=== PATIENT | female | born 1995 | race African-American/Black ===

== ENCOUNTER 2018-07-16 15:15 | Observation (INO) | payer MEDICAID ==
[~2018-07-16] VITALS: Ht 152.4 cm; Wt 51.3 kg
[2018-07-16] MEDS ORDERED: FERR-252 PO (15:43)
[2018-07-16] MEDS ORDERED: CALC600T16 PO (15:43)
[2018-07-16] MEDS ORDERED: PREN-380 PO (15:43)
[2018-07-16 16:02] VITALS: BP 110/67
== END 2018-07-16 17:15 | disposition home or self-care (01) ==
LOC: MLD 15:15
PROVIDERS: ADMIT Obstetrics & Gynecology; ATTEND Obstetrics & Gynecology
DX: O26.893 Other specified pregnancy related conditions, third trimester (principal); R10.30 Lower abdominal pain, unspecified; Z3A.33 33 weeks gestation of pregnancy
CPT/HCPCS: 81000; G0378

== ENCOUNTER 2018-08-03 18:40 | Inpatient (IN) | payer MEDICAID ==
[~2018-08-03] VITALS: Ht 152.4 cm; Wt 54.9 kg
[~2018-08-03 18:40] MED LIST: CALC600T16 PO; FERR-252 PO; PREN-380 PO
[2018-08-03] MEDS ORDERED: TERBUTALINE 1 MG/ML VIAL SUBQ SCH (20:10)
[2018-08-03] MEDS: LACTATED RINGERS 1,000 ML IV SCH (20:10)
[2018-08-03] MEDS ORDERED: AMPICILLIN 2,000 MG in NACL 0.9% 100 ML IV SCH (20:15)
[2018-08-03] MEDS ORDERED: AMPICILLIN 2,000 MG VIAL ONE (20:25)
[2018-08-03] MEDS ORDERED: TERBUTALINE 1 MG/ML VIAL SUBQ ONE (20:25)
[2018-08-03 20:45] LABS: BASOPHILS % (AUTO) 0.2 % (0.0-2.0); HEMATOCRIT 30.7 % (36-48); HEMOGLOBIN 10.2 g/dL (12.0-16.0); LYMPHOCYTES # (AUTO) 1.5 K/uL (2.5-16.5); LYMPHOCYTES % (AUTO) 18.1 % (20.5-51.1); MEAN CORPUSCULAR HEMOGLOBIN 29 pg (27-31); MEAN CORPUSCULAR HGB CONC 33 g/dL (33-37); MEAN CORPUSCULAR VOLUME 87.5 fL (80-94); MONOCYTES # (AUTO) 0.5 K/uL (0.8-1.0); MONOCYTES % (AUTO) 6.4 % (1.7-9.3); NEUTROPHILS % (AUTO) 75.3 % (42.2-75.2); PLATELET COUNT (AUTO) 208 K/uL (140-450); RED BLOOD CELL COUNT(AUTO) 3.51 MIL/uL (4.20-5.40)
[2018-08-03 21:05] LABS: APPEARANCE,URINE CLEAR (CLEAR); BLOOD, URINE 3+ (NEGATIVE); COLOR,URINE YELLOW (YELLOW); PH,URINE 6.5 (5.0-9.0); UGLUCOSE NEGATIVE (NEGATIVE)
[2018-08-03 21:06] LABS: BILIRUBIN,URINE 1+ (NEGATIVE); LEUKOCYTE ESTERASE ,URINE NEGATIVE (NEGATIVE); NITRITE, URINE NEGATIVE (NEGATIVE)
[2018-08-03 21:11] LABS: RBC,URINE 80-100 /HPF (0-5); WBC,URINE 0-5 (RARE) /HPF (0-5)
[2018-08-03] MEDS ORDERED: NIFEdipine 10 MG CAPLF ONE (21:48)
[2018-08-03] MEDS: NIFEdipine 10 MG CAPLF PO SCH ×2 (21:56→22:26)
[2018-08-03] MEDS ORDERED: BETAMETH ACET/BETAMETH NA PH 30 MG/5 ML VIAL IM ONE (22:17)
[2018-08-03 22:39] LABS: D-DIMER > 5000 ng/ml (0-400)
[2018-08-03 22:57] VITALS: BP 101/55
[2018-08-03 23:20] LABS: FIBRINOGEN 381 mg/dL (200-400)
[2018-08-03 23:53] LABS: BARBITURATE, URINE NEGATIVE ng/ml (NEG <=200); BENZODIAZEPINE, URINE NEGATIVE ng/mL (NEG <=200); CANNABINOID, URINE POSITIVE ng/mL (NEG <=50); COCAINE, URINE NEGATIVE ng/mL (NEG <=300); OPIATE, URINE NEGATIVE ng/mL (NEG <=2000); PHENCYCLIDINE SCREEN,URINE NEGATIVE ng/mL (NEG <=25)
[2018-08-04] MEDS ORDERED: AMPICILLIN 2,000 MG in NACL 0.9% 100 ML IV SCH ×2
[2018-08-04] MEDS: LACTATED RINGERS 1,000 ML IV SCH ×2 (00:53→07:17)
[2018-08-04] MEDS ORDERED: AMPICILLIN 2,000 MG VIAL ONE ×4 (01:03→12:54)
--- NOTE | 2018-08-04 08:24 | NUR ---
PATIENT HAS BEEN SCREENED AND CATEGORIZED LOW NUTRITION RISK. PATIENT WILL BE SEEN WITHIN 7 DAYS OF ADMISSION. 08/10/[address]
[2018-08-04] MEDS ORDERED: BETAMETH ACET/BETAMETH NA PH 30 MG/5 ML VIAL IM ONE ×2 (09:00→10:22)
== END 2018-08-04 14:21 | disposition home or self-care (01) | DRG 565 ==
LOC: MLD 18:40
PROVIDERS: ADMIT Obstetrics & Gynecology; ATTEND Obstetrics & Gynecology
DX: O47.03 False labor before 37 completed weeks of gestation, third trimester (principal); Z3A.36 36 weeks gestation of pregnancy
CPT/HCPCS: 36415; 59025; 76805; 80305; 81001; 85025; 85379; 85384; 85610; 85730; 87653-90; J0290; J0702; J3105; J7120; Q0092

== ENCOUNTER 2018-10-21 12:32 | Emergency (ER) | payer MEDICAID, OTHER ==
[~2018-10-21] VITALS: Ht 160 cm; Wt 47.6 kg
--- NOTE | 2018-10-21 12:43 | NUR ---
PATIENT AMBUTATED TO ER BED 4
[2018-10-21 12:46] VITALS: BP 114/74
--- NOTE | 2018-10-21 12:53 | NUR ---
PT BIB SELF TO THE ED WITH THE CHIEF C/O DRY COUGH FOR A WEEK. DENIES ANY FEVER OR CHEST PAIN. DENIES SOB OR DIFFICULTY BREATHING. HX OF ASTHMA. TAKING ALBUTEROL. LUNGS CLEAR. DENIES ANY OTHER PROBLEM AT THIS TIME. STATES HAVING PAIN ON S/O CS SITE DURING COUGH. PAIN 9/10 AT THIS TIME. ER MD AWARE.
--- NOTE | 2018-10-21 12:58 | NUR ---
PT BEING SEEN BY BAUTISTA LOZOYA.
--- NOTE | 2018-10-21 13:05 | NUR ---
PT TRANSPORT TO RADIOLOGY
--- NOTE | 2018-10-21 13:12 | NUR ---
PT RETURNED FROM RADIOLOGY
[2018-10-21 14:33] VITALS: BP 128/80
--- NOTE | 2018-10-21 14:33 | NUR ---
Patient discharged with v/s stable. Written and verbal after care instructions given and explained. Patient alert, oriented and verbalized understanding of instructions. Ambulatory with steady gait. All questions addressed prior to discharge. ID band removed. Patient advised to follow up with PMD. Rx of CODEINE PHOSPHATE/PROMATHAZINE HYDROCHLORIDE AND TESSALON given. Patient educated on indication of medication including possible reaction and side effects. Opportunity to ask questions provided and answered.
== END 2018-10-21 14:33 | disposition home or self-care (01) ==
LOC: MED 12:32
DX: J06.9 Acute upper respiratory infection, unspecified (principal); G47.00 Insomnia, unspecified; J45.909 Unspecified asthma, uncomplicated
CPT/HCPCS: 71046; 99283

== ENCOUNTER 2018-11-28 17:21 | Emergency (ER) | payer OTHER ==
[~2018-11-28] VITALS: Ht 152.4 cm; Wt 45.4 kg
[2018-11-28 17:35] VITALS: BP 139/86
--- NOTE | 2018-11-28 18:51 | NUR ---
PT AMBULATED TO BED 01.
--- NOTE | 2018-11-28 18:51 | NUR ---
BIB SELF. AAO X4 C/O DRY COUGH THAT IS CAUSING PAIN AT HER INCISION. PT STATES 8/10 PAIN TO THE SITE. PT IS 3 MONTHS AND STATES SHE IS STILL HEALING. CLEAR LALO LUNGS UPON AUSCULTATION. DENIES SOB, N/V/D. HOB UP. BED SIDE RAILS UP X1. ON LOW BED POSITION, LOCKED. ER MADE AWARE OF PT STATUS.
[2018-11-28 19:20] VITALS: BP 128/84
--- NOTE | 2018-11-28 19:20 | NUR ---
Patient discharged with v/s stable. Written and verbal after care instructions given and explained. Patient alert, oriented and verbalized understanding of instructions. Ambulatory with steady gait. All questions addressed prior to discharge. ID band removed. Patient advised to follow up with PMD. Rx of GUAIATUSSIN given. Patient educated on indication of medication including possible reaction and side effects. Opportunity to ask questions provided and answered.
== END 2018-11-28 19:20 | disposition home or self-care (01) ==
LOC: MED 17:21
DX: J20.9 Acute bronchitis, unspecified (principal); J45.909 Unspecified asthma, uncomplicated
CPT/HCPCS: 99283

== ENCOUNTER 2018-12-31 17:33 | Emergency (ER) | payer OTHER ==
[~2018-12-31] VITALS: Ht 152.4 cm; Wt 45.4 kg
[2018-12-31 17:45] VITALS: BP 119/62
--- NOTE | 2018-12-31 17:52 | NUR ---
Patient ambulated to bed 6. RN evaluating patient at bedside.
--- NOTE | 2018-12-31 18:05 | NUR ---
COUGH X 1 WEEK, SORE THROAT, TRIED robitussin DOES NOT WORK. DENIES NAUSEAR AND DIARRHEA; STATES VOMITED ONE YESTERDAY. LUNG SOUNDS ARE CLEAR; HR EVEN AND REGULAR; PT DENIES ANY FEVER, CP, SOB, OR COUGH AT THIS TIME; PATIENT STATES PAIN OF 9/10 AT THIS TIME; VSS; PATIENT POSITIONED FOR COMFORT; HOB ELEVATED; BED DOWN. ER MD MADE AWARE OF PT STATUS.
--- NOTE | 2018-12-31 18:08 | NUR ---
Dr. Muro evaluating patient at bedside.
[2018-12-31 18:27] VITALS: BP 119/62
--- NOTE | 2018-12-31 18:29 | NUR ---
Patient discharged with v/s stable. Written and verbal after care instructions given and explained. Patient alert, oriented and verbalized understanding of instructions. Ambulatory with steady gait. All questions addressed prior to discharge. ID band removed. Patient advised to follow up with PMD. Rx of Promethazine given. Patient educated on indication of medication including possible reaction and side effects. Opportunity to ask questions provided and answered.
== END 2018-12-31 18:29 | disposition home or self-care (01) ==
LOC: MED 17:33
DX: R05 Cough (principal); J45.909 Unspecified asthma, uncomplicated
CPT/HCPCS: 99283

== ENCOUNTER 2019-01-09 14:04 | Emergency (ER) | payer OTHER ==
[~2019-01-09] VITALS: Ht 152.4 cm; Wt 45.4 kg
[2019-01-09 14:14] VITALS: BP 119/71
--- NOTE | 2019-01-09 14:22 | NUR ---
Patient ambulated to bed 2. RN evaluating patient at bedside. Addendum: 01/09/19 at 1426 by MMTHEM Patient ambulated to bed 8. RN evaluating patient at bedside.
--- NOTE | 2019-01-09 14:30 | NUR ---
Note undone in EDM - 01/09/19 at 1701 by MED PT C/O ABNORMAL VAGINAL BLEEDING, LOWER ABD PAIN, AND CONSTIPATION FOR 3 DAYS. PT ALSO HAD MILD NAUSEA AND LIGHTHEADACHE BUT NOT AT THIS TIME. STATED 4 WKS. DENIES VOMITING; SKIN IS PINK/WARM/DRY; AAOX4 WITH EVEN AND STEADY GAIT; PT DENIES ANY FEVER, CP, SOB, OR COUGH AT THIS TIME; PATIENT STATES PAIN OF 10/10 AT THIS TIME; VSS; PATIENT POSITIONED FOR COMFORT; HOB ELEVATED; BEDRAILS UP X1; BED DOWN. ER MADE AWARE OF PT STATUS.
--- NOTE | 2019-01-09 14:30 | NUR ---
PT C/O ABNORMAL VAGINAL BLEEDING (PT STATES CHANGES 5 PADS A DAY FOR 3 DAYS), LOWER ABD PAIN, AND CONSTIPATION FOR 3 DAYS. PT ALSO HAD MILD NAUSEA AND LIGHTHEADACHE BUT NOT AT THIS TIME. STATED 4 WKS. DENIES VOMITING; SKIN IS PINK/WARM/DRY; AAOX4 WITH EVEN AND STEADY GAIT; PT DENIES ANY FEVER, CP, SOB, OR COUGH AT THIS TIME; PATIENT STATES PAIN OF 10/10 AT THIS TIME; VSS; PATIENT POSITIONED FOR COMFORT; HOB ELEVATED; BEDRAILS UP X1; BED DOWN. ER MD MADE AWARE OF PT STATUS.
--- NOTE | 2019-01-09 15:21 | NUR ---
US tech at bedside for exam.
[2019-01-09 15:35] LABS: APPEARANCE,URINE HAZY (CLEAR); BILIRUBIN,URINE NEGATIVE (NEGATIVE); BLOOD, URINE 3+ (NEGATIVE); COLOR,URINE YELLOW (YELLOW); LEUKOCYTE ESTERASE ,URINE NEGATIVE (NEGATIVE); NITRITE, URINE NEGATIVE (NEGATIVE); UGLUCOSE NEGATIVE (NEGATIVE)
[2019-01-09 15:56] LABS: RBC,URINE >100 /HPF (0-5); WBC,URINE 0-5 /HPF (0-5)
[2019-01-09 17:07] VITALS: BP 108/69
--- NOTE | 2019-01-09 17:07 | NUR ---
Patient discharged with v/s stable. Written and verbal after care instructions given and explained. Patient verbalized understanding. Ambulatory with steady gait. All questions addressed prior to discharge. Advised to follow up with PMD.
[2019-01-09 17:26] LABS: HEMATOCRIT 34.6 % (36-48); MEAN CORPUSCULAR HEMOGLOBIN 31 pg (27-31); MEAN CORPUSCULAR HGB CONC 35 g/dL (33-37); MEAN CORPUSCULAR VOLUME 88.9 fL (80-94); RED BLOOD CELL COUNT(AUTO) 3.89 MIL/uL (4.20-5.40); RED CELL DISTRIBUTION WIDTH 15.6 % (11.6-13.7); WHITE BLOOD COUNT (AUTO) 4.4 K/uL (4.8-10.8)
[2019-01-09 17:27] LABS: BASOPHILS % (AUTO) 0.6 % (0.0-2.0); LYMPHOCYTES # (AUTO) 1.8 K/uL (2.5-16.5); LYMPHOCYTES % (AUTO) 40.3 % (20.5-51.1); MONOCYTES # (AUTO) 0.3 K/uL (0.8-1.0); MONOCYTES % (AUTO) 7.1 % (1.7-9.3); NEUTROPHILS # (AUTO) 2.2 K/uL (1.8-7.7); PLATELET COUNT (AUTO) 284 K/uL (140-450)
== END 2019-01-09 17:07 | disposition home or self-care (01) ==
LOC: MED 14:04
DX: O20.9 Hemorrhage in early pregnancy, unspecified (principal); O26.891 Other specified pregnancy related conditions, first trimester; R10.84 Generalized abdominal pain; K59.00 Constipation, unspecified; R11.0 Nausea; R51 Headache; R42 Dizziness and giddiness; Z3A.01 Less than 8 weeks gestation of pregnancy; J45.909 Unspecified asthma, uncomplicated; Z98.890 Other specified postprocedural states
CPT/HCPCS: 36415; 76817; 81001; 81025; 84702; 85025; 86900; 86901; 99284; Q0092

== ENCOUNTER 2019-01-14 02:13 | Emergency (ER) | payer OTHER ==
[~2019-01-14] VITALS: Ht 152.4 cm; Wt 46.4 kg
[2019-01-14 02:17] VITALS: BP 148/101
--- NOTE | 2019-01-14 02:20 | NUR ---
PT AMBULATED TO ER BED 3
--- NOTE | 2019-01-14 02:20 | NUR ---
PT BIB BOYFRIEND C/O ABD PAIN. PT STATES SUDDEN ONSET OF 10/10 RLQ ABD PAIN X3 HOURS; +NAUSEA, VOMITING ONCE AT HOME; +REBOUND TENDERNESS. ACTIVE BOWEL SOUNDS; LBM: TODAY. DENIES FEVER OR CHILLS. PT HAD SECTION 5 MONTHS AGO AND IS UNSURE IF SHE IS NOW. PT ENCOURAGED TO GIVE URINE SAMPLE. PT PLACED IN GOWN, SAFETY PRECAUTIONS IN PLACE. PENDING ERMD EVAL. WILL CONTINUE TO MONITOR. PMH: DENIES
--- NOTE | 2019-01-14 02:30 | NUR ---
DR. RUSSO AT BEDSIDE.
[2019-01-14] MEDS ORDERED: NACL 0.9% 1,000 ML IV ONE (02:40)
[2019-01-14] MEDS ORDERED: MORPHINE SULFATE 4 MG/ML SYR IVP ONE (02:40)
[2019-01-14] MEDS ORDERED: ONDANSETRON 4 MG/2 ML VIAL IVP ONE (02:40)
--- NOTE | 2019-01-14 02:40 | NUR ---
IV START: R AC 20G, FLUSHED WELL W/O RESISTANCE; NO REDNESS OR SWELLING NOTED TO SIGHT. PT TOLERATED WELL. LABS DRAWN AT THIS TIME AND SENT W/ LICENSED NURSE PRACTITIONER.
[2019-01-14 03:03] LABS: BASOPHILS # (AUTO) 0.1 K/uL (0.00-0.22); BASOPHILS % (AUTO) 1.3 % (0.0-2.0); EOSINOPHILS # (AUTO) 0.1 K/uL (0-0.4); EOSINOPHILS % (AUTO) 1.4 % (0.0-4.0); HEMATOCRIT 34.2 % (36-48); HEMOGLOBIN 11.6 g/dL (12.0-16.0); LYMPHOCYTES # (AUTO) 1.6 K/uL (2.5-16.5); LYMPHOCYTES % (AUTO) 24.8 % (20.5-51.1); MEAN CORPUSCULAR HEMOGLOBIN 30 pg (27-31); MEAN CORPUSCULAR HGB CONC 34 g/dL (33-37); MEAN CORPUSCULAR VOLUME 88.2 fL (80-94); MONOCYTES # (AUTO) 0.3 K/uL (0.8-1.0); NEUTROPHILS # (AUTO) 4.5 K/uL (1.8-7.7); NEUTROPHILS % (AUTO) 67.5 % (42.2-75.2); PLATELET COUNT (AUTO) 314 K/uL (140-450); RED BLOOD CELL COUNT(AUTO) 3.88 MIL/uL (4.20-5.40); RED CELL DISTRIBUTION WIDTH 15.6 % (11.6-13.7); WHITE BLOOD COUNT (AUTO) 6.6 K/uL (4.8-10.8)
[2019-01-14 03:05] LABS: BILIRUBIN,URINE NEGATIVE (NEGATIVE); BLOOD, URINE 3+ (NEGATIVE); COLOR,URINE YELLOW (YELLOW); LEUKOCYTE ESTERASE ,URINE NEGATIVE (NEGATIVE); NITRITE, URINE NEGATIVE (NEGATIVE); UGLUCOSE NEGATIVE (NEGATIVE)
[2019-01-14 03:17] LABS: ANION GAP 16.2 (8-16); CARBON DIOXIDE 25.6 mmol/L (21-32); CREATININE 0.7 mg/dL (0.6-1.3); POTASSIUM 3.8 mmol/L (3.5-5.1)
[2019-01-14 03:17] LABS: APPEARANCE,URINE SLIGHTLY HAZY (CLEAR)
[2019-01-14 03:19] LABS: RBC,URINE 20-50 /HPF (0-5); WBC,URINE 0-5 /HPF (0-5)
--- NOTE | 2019-01-14 03:30 | NUR ---
PT ACTING APPROPRIATLY, STATES SHE FEELS BETTER.
[2019-01-14 03:33] LABS: ALBUMIN 4.2 g/dL (3.4-5.0); TOTAL BILIRUBIN 0.3 mg/dL (0.0-1.0)
--- NOTE | 2019-01-14 04:00 | NUR ---
US AT BEDSIDE.
--- NOTE | 2019-01-14 04:50 | NUR ---
Patient discharged with v/s stable. Patient acting appropriatly, states she feels much better and is ready to go home; pain 0/10 at this time. Written and verbal after care instructions given and explained. Patient alert, oriented and verbalized understanding of instructions. Ambulatory with steady gait. All questions addressed prior to discharge. ID band removed. Patient advised to follow up with PMD. Rx of [place] given. Patient educated on indication of medication including possible reaction and side effects. Opportunity to ask questions provided and answered.
[2019-01-14 04:54] VITALS: BP 121/74
== END 2019-01-14 04:50 | disposition home or self-care (01) ==
LOC: MED 02:13
DX: O03.9 Complete or unspecified spontaneous abortion without complication (principal); D64.9 Anemia, unspecified; J45.909 Unspecified asthma, uncomplicated; Z98.890 Other specified postprocedural states
CPT/HCPCS: 36415; 74176; 76801; 80053; 81001; 81025; 84702; 85025; 86886; 86900; 86901; 96361; 96374; 96375; 99284; J2270; J2405; J7030; Q0092

== ENCOUNTER 2019-03-30 20:33 | Emergency (ER) | payer OTHER ==
[~2019-03-30] VITALS: Ht 152.4 cm; Wt 44.5 kg
[2019-03-30 20:43] VITALS: BP 145/95
[2019-03-30 22:50] VITALS: BP 145/95
== END 2019-03-30 22:50 | disposition home or self-care (01) ==
LOC: MED 20:33
DX: R05 Cough (principal); R09.89 Other specified symptoms and signs involving the circulatory and respiratory systems; J45.909 Unspecified asthma, uncomplicated; Z98.890 Other specified postprocedural states
CPT/HCPCS: 71045; 99283; Q0092

== ENCOUNTER 2019-05-26 12:06 | Emergency (ER) | payer OTHER ==
[~2019-05-26] VITALS: Ht 165.1 cm; Wt 44.5 kg
[2019-05-26 12:13] VITALS: BP 106/78
--- NOTE | 2019-05-26 12:16 | NUR ---
PT TO BED 7 WITH STEADY GAIT
--- NOTE | 2019-05-26 12:29 | NUR ---
PATIENT PRESENTS TO ED WITH NON-PRODUCTIVE COUGH X 7 DAYS. PT ALSO C/O GENERALIZED BODY WEAKNESS, CHILLS, NAUSEA, H/A. PT DENIES FEVER, VOMITING, , COLDS. PT STATES THAT SHE WAS DIAGNOSED WITH CHRONIC BRONCHITIS IN THE PAST. SKIN IS PINK/WARM/DRY; AAOX4 WITH EVEN AND STEADY GAIT; LUNGS CLEAR BL; HR EVEN AND REGULAR; VSS; PATIENT POSITIONED FOR COMFORT; HOB ELEVATED; BEDRAILS UP X2; BED DOWN. ER MD MADE AWARE OF PT STATUS. PMH: ASTHMA, CHRONIC BRONCHITIS ALLERGIES: NONE
[2019-05-26] MEDS ORDERED: ACETAMINOPHEN EXTRA STRENGTH 500 MG TAB PO ONE (12:40)
--- NOTE | 2019-05-26 14:01 | NUR ---
Patient discharged with v/s stable. Written and verbal after care instructions given and explained. Patient alert, oriented and verbalized understanding of instructions. Ambulatory with steady gait. All questions addressed prior to discharge. ID band removed. Patient advised to follow up with PMD. Rx of TYLENOL, MOTRIN given. Patient educated on indication of medication including possible reaction and side effects. Opportunity to ask questions provided and answered.
[2019-05-26 14:02] VITALS: BP 118/68
== END 2019-05-26 14:01 | disposition home or self-care (01) ==
LOC: MED 12:06
DX: B34.9 Viral infection, unspecified (principal); J45.909 Unspecified asthma, uncomplicated
CPT/HCPCS: 99283

== ENCOUNTER 2019-06-14 17:34 | Emergency (ER) | payer OTHER ==
[~2019-06-14] VITALS: Ht 152.4 cm; Wt 44.5 kg
[2019-06-14 17:55] VITALS: BP 122/69
[2019-06-14] MEDS: DEXAMETHASONE 10 MG/ML VIAL PO ONE (19:50)
[2019-06-14] MEDS: KETOROLAC 30 MG/ML VIAL IM ONE (19:59)
[2019-06-14 20:20] VITALS: BP 122/69
== END 2019-06-14 20:20 | disposition home or self-care (01) ==
LOC: MED 17:34
DX: J20.9 Acute bronchitis, unspecified (principal); J45.909 Unspecified asthma, uncomplicated; Z98.890 Other specified postprocedural states
CPT/HCPCS: 81002; 81025; 99283; J1100; J1885